=== PATIENT | female | born 1985 | race Caucasian/White ===

== ENCOUNTER → 2019-01-28 | Day surgery (SDC) | payer MEDICAID ==
[~2019-01-28] MED LIST: ALLEGRA ALLERG180 MG PO; B COMPLEX1 EACH PO; BALANCED B-100100 MG PO; BENTYL 10 MG CA10 M1 PO; CARAFATE 1 GM TA1 G1 PO; CHLORZOXAZONE PO; CLOBAZAM10 MG PO; COLACE100 MG PO; EFFEXOR XR75 MG PO; EXCEDRIN CAPLE1 EACH PO; FIBER500 MG PO; FLAXSEED-FISH-400 MG PO; GABITRIL 4 MG TA4 MG PO; GABITRIL12 MG PO; GABITRIL4 MG PO; GAS RELIEF80 MG PO; GAVISCON ES CH1 EAC1 PO; IBUPROFEN 800800 M1 PO; KEPPRA1000 MG PO; LOPRESSOR25 PO; MUCINEX100 MG PO; NASACORT10.8 ML INH; NEXIUM40 MG PO; ONFI10 MG PO; PROBIOTIC1 EAC1 PO; SINUS RINSE PR1 EACH INH; SOMNAPURE PO; TEARS AGAIN15 ML TOP; TEGRETOL100 MG/5 M PO; TRICOR145 MG PO; UNICOMPLEX M TA1 TA1 PO; VALERIAN ROOT100 MG PO; VIMPAT200 MG PO; VISINE15 ML TOP; VISTARIL 25 MG25 M1 PO; VITAMINC500 PO; XANAX1 MG PO; ZANTAC 150MG T150 MG PO; ZINC30 MG PO; [UNRECOGNIZED DRUG - OTHER] PO
--- NOTE | ~2019-01-28 | PROC ---
[address] [place] [address] PROCEDURE REPORT Name: RIANNA SANCHEZ Room: [facility]#: [id number] Admission: 01/28/19 Attend Phys: Yury Solomon DO Discharge: Date of : 81 Report #: [id number] THIS REPORT FOR: //name// For GI report, please see the Provation report in Per[employer] 7 content. By: 0706Medical Records Staff ELIU /ELIAS
[2019-01-28 09:42] LABS: HEMOGLOBIN 13.4 gm/dL (12.0-15.0)
--- NOTE | 2019-01-28 12:58 | EKG ---
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1985 Requested By: Yury Solomon Order Number: [id number] [place] MD: Corey Paris Measurements Intervals [place] Rate: 76 P: 7 OK: 214 QRS: 11 QRSD: 87 T: -14 QT: 388 QTc: 437 Interpretive Statements Sinus rhythm Prolonged OK interval Low voltage, precordial leads Delayed R-wave progression Borderline T abnormalities, inferior leads No previous ECG available for comparison Electronically Signed On 01-28-2019 12:58:26 CDT by Corey Paris [email or web address] <ELECTRONICALLY SIGNED> By: Corey Paris MD, [facility] 01/28/19 1258 1000 1000 Corey Paris MD, [facility] /EPI
== END | disposition home or self-care (01) ==
LOC: M.SUR 07:26
PROVIDERS: Internal Medicine Gastroenterology
DX: K29.00 Acute gastritis without bleeding (principal); K21.0 Gastro-esophageal reflux disease with esophagitis; I12.9 Hypertensive chronic kidney disease with stage 1 through stage 4 chronic kidney disease, or unspecified chronic kidney disease; N18.9 Chronic kidney disease, unspecified; G40.909 Epilepsy, unspecified, not intractable, without status epilepticus; F32.9 Major depressive disorder, single episode, unspecified; E66.01 Morbid (severe) obesity due to excess calories; Z88.0 Allergy status to penicillin; Z88.8 Allergy status to other drugs, medicaments and biological substances; Z90.49 Acquired absence of other specified parts of digestive tract; Z98.890 Other specified postprocedural states; Z79.899 Other long term (current) drug therapy; Z95.0 Presence of cardiac pacemaker; Z68.41 Body mass index [BMI] 40.0-44.9, adult